=== PATIENT | male | born 1955 | race Caucasian/White ===

== ENCOUNTER 2024-05-14 11:15 | Outpatient (REF) | payer MEDICARE, SELFPAY | END 2024-05-14 11:16 | disposition home or self-care (01) | LOC: HO.LNP 11:15 | PROVIDERS: Visit Provider Psychiatry & Neurology Neurology | DX: Z13.89 Encounter for screening for other disorder (principal) ==

== ENCOUNTER 2024-05-18 11:43 | Outpatient (REF) | payer MEDICARE, SELFPAY ==
[2024-05-22 04:33] LABS: Arsenic, 24H Urine <10 mcg/L (<=80); Cadmium, 24H Urine <0.5 mcg/L (<=5.0); Lead, 24H Urine <10 mcg/L (<80); Mercury, 24H Urine <4 mcg/L (<=20)
== END 2024-05-18 11:44 | disposition home or self-care (01) ==
LOC: HO.LNP 11:43
PROVIDERS: Visit Provider Psychiatry & Neurology Neurology
DX: G20.C Parkinsonism, unspecified (principal)
CPT/HCPCS: 82175; 82300; 83655; 83825

== ENCOUNTER 2025-02-15 14:20 | Outpatient (AMB) | payer MEDICARE, SELFPAY ==
--- OUTSIDE RECORDS SUMMARY | 2025-02-10 08:00 | XMS_ITS | Encounter Summary ---
Author Organization [facility] Address [address] [place] [address] Care Team Providers Care Counter Molder Name Role Phone Eris Magdaleno MD Primary Care Provider [phone] Reason for Visit * Reason Comments Follow-up Right knee pain Encounter Details Date Type Department Care Team (Late st Contact Info) Description 02/10/2025 8:00 AM EDT Office Visit Orthopedic Surgery - [place] [address] [phone] Calvin Rankin MD [address] [address] Post-traumatic osteoarthritis of right knee (Primary Dx); Parkinson's disease, unspecified whether dyskinesia present, unspecified whether manifestations fluctuate (CMS/HCC V24, CMS/HCC V28); Tremor; Chronic instability of right knee Social History Tobacco Use Types Packs/Day Years Used Date Smoking Tobacco: Never Smokeless Tobacco: Never Alcohol Use Standard Drinks/Week Comments No 0 (1 standard drink = 0.6 oz pur e alcohol) Sex and Gender Information Value Date Recorded Sex Assigned at Not on file Legal Sex Male 11:40 PM EST Gender Identity Not on file Sexual Orientation Not on file documented as of this encounter Last Filed Vital Signs Vital Sign Reading Time Taken Comments Blood Pressure - - Pulse - - Temperature - - Respiratory Rate - - Oxygen Saturation - - Inhaled Oxygen Concentration - - Weight 95.7 kg (211 lb) 02/10/2025 7:46 AM EDT Height - - Body Mass Index 27.84 02/03/2025 1:09 PM EDT documented in this encounter Progress Notes * Calvin Rankin MD - 02/10/2025 8:00 AM EDT Images from the original note were not included. * Calvin Rankin MD - 02/10/2025 8:00 AM EDT [facility] Date: 02/10/2025 Reason for visit: Right knee pain, stiffness, weakness, instability; chronic and postoperative Primary Care Physician: Eris Magdaleno MD Color Room Attendant: None required HPI Lukasz Lyons is a 70 y.o. year old male presents today for evaluation of his right knee. He has previously seen Elsie most recently on 02/03/2025 for follow- up involving right knee pain and instability. He had a history of ACL reconstruction and arthroscopy. He was using an ACL brace during activities noted persistent symptoms in the knee which was creating some increased lower back pain. She discussed considering cortisone injection versus knee replacement surgery. He comes in today saying that he has had persistent symptoms the knee for several years. He underwent right knee ACL reconstruction at [facility] by Dr. Saldaña in 1996 and then subsequent arthroscopy in 2007. He has not been previously evaluated for knee replacement surgery. He has been reluctant to pur linnette knee replacement since pain is not his primary issue this is mainly weakness and instability which have been progressive. However he more recently has started develop pain with weightbearing and doing stairs. Pain does not affect him at rest or sleep. The knee can feel stiff. But primarily the knee feels weak or unstable. He feels like the knee will regulate 1 to give out but he has not had any falls. He feels that the leg is weakening because he has reduced weightbearing activities on the knee. He does not take any regular pain medications. He does regularly wear an ACL brace when out doing more strenuous activities such as walking. He did attend physical therapy earlier this year without benefit. He has been using a cane for the last few years. He owns a walker but does not regularly use this. He was recently diagnosed with Parkinson's. He has been referred to neurology and they are awaitinga nuclear brain imaging test. He has not started any Parkinson's medications. He has read reports that Parkinson's medications can interact with anesthesia. He denies any recent fevers, chills, sweats. He denies any numbness or tingling. He denies any history of DVT or PE. Denies any cancer history. He denies any metal allergy. He lives at home with his and has no steps into the house. Patient Active Problem List Diagnosis Generalized anxiety disorder Hyperlipidemia Sebaceous cyst Parkinson's disease ([facility] V24, [facility] V28) Hammertoe of right foot Past Surgical History: Procedure Laterality Date CARDIOVASCULAR STRESS TEST 11/12 PROCEDURE: IN CV STRS TST XERS&/OR RX CONT ECG W/O I&R; COMMENT: neg KNEE ARTHROSCOPY W/ DEBRIDEMENT 11/02/96 PROCEDURE: IN ARTHRS KNEE DEBRIDEMENT/SHAVING ARTCLR CRTLG; COMMENT: Naveensetsarah; Right ACL repair OTHER SURGICAL HISTORY 10/17 PROCEDURE: CHG ASSAY OF PROSTATE SPECIFIC ANTIGEN FREE; COMMENT: 0.6 Current Outpatient Medications Medication Instructions atorvastatin (LIPITOR) 10 mg, oral, Daily citalopram (CELEXA) 10 mg, oral, Daily folic acid/multivit-min/lutein (CENTRUM SILVER ORAL) Take 1 Tab by mouth daily. No Known Allergies Social History Tobacco Use Smoking status: Never Smokeless tobacco: Never Substance Use Topics Alcohol use: No Drug use: No Physical Exam: Vitals: 02/10/25 0746 Weight: 95.7 kg (211 lb) Well-appearing pleasant male, no apparent distress, alert and oriented. Visible shaking and tremorsprimarily involving the right upper extremity. BMI 28. Pain 5/10. Gait examination he does will require both arms to rise from seated position. He walks with a valgus thrust left lower extremity using a cane. On examination of the right knee he has a well-healed longitudinal incision just medial tibial tubercle. Moderate effusion. Knee range of motion is 0 to 130 degrees. Passively he has 3 degrees hyperextension. Partially correctable valgus. 2+ opening medially and laterally to valgus and varus stressat 30 degrees. Hard endpoint on valgus stress at 30 degrees. 2+ anterior posterior drawer. Mild tenderness about the lateral more than medial joint line, mild tenderness and crepitus on patellar compression and translation. No hip or groin pain on rotation. Nonpulsatile swelling within the popliteal fossa, mildly tender, no overlying skin changes. No calf tenderness. Distally grossly neurovascular intact. Examination of the left knee is benign without any significant tenderness or crepitus. Labs: Lab Results Component Value Date WBC 6.6 12/30/2024 HCT 40.8 (L) 12/30/2024 PLT 195 12/30/2024 Lab Results Component Value Date NA 134 11/04/2024 K 4.5 11/04/2024 EGFR 96 11/04/2024 ALBUMIN 4.2 11/04/2024 BILITOT 0.7 11/04/2024 AST 16 11/04/2024 ALT 26 11/04/2024 ALKPHOS 63 11/04/2024 No results found for: INR , PTT Lab Results Component Value Date LEROY Negative 12/30/2024 Imagin views weightbearing of the right knee obtained 04/21/2024 reviewed including AP, Leos, lateral, sunrise. These show severe degenerative change involving the lateral compartment including complete joint space narrowing, small marginal space, subchondral sclerosis. Mild degenerative change involving medial compartment, and moderate degenerative change involving patellofemoral compartment. 10 degree tibial valgus. Significant anterior translation of the tibia on the femur, along with partiallateral subluxation of the tibia on the femur. Retained proximal medial tibial screw which appearswell-fixed. Loose body within the popliteal fossa. 10 degree tibial valgus. Assessment: 70-year-old male with right knee severe valgus posttraumatic arthritis with instabilitystatus post distant ACL reconstruction. Parkinson's disease currently untreated. Anxiety. BMI 28. Plan: Discussed my findings, and I reviewed imaging studies with the patient. He has severe dagc-gl-udfz arthritis involving the right knee along with both subjective and objective instability. Left knee and lower back symptoms are likely due to him compensating from the right knee. I have recommended that he continue low impact activities as tolerated, but continue to use ACL brace for more strenuous activities, along with assist device to prevent any falls. Due to the severe dbxa-wr-esna nature of his arthritis along with progressive instability, I do not believe that ongoing nonoperative treatments will provide lasting relief. Therefore we discussed definitive treatment including right total knee replacement surgery. I used a model to review technical details, inherent benefits and risks, and anticipated recovery. I printed out information for them to review on total knee replacement surgery. I was quite blunt with the patient explaining that he is a high risk surgical candidate considering retained hardware, ligament instability, and untreated Parkinson's. I have strongly recommended that he contact his neurologist to determine if it would be better for him to start Parkinson's treatment/medicine before surgery, which may improve his Parkinson symptoms and coordination allowing him to better rehab after surgery. We have specifically discussed that surgery will improve pain and function of the knee, but that strength is mainly through rehabilitation which may be limited due to his Parkinson's. Other additional increased risks include fall with injury, instability, and implantloosening. Finally we discussed increased risk of peroneal nerve palsy due to valgus alignment which could result in foot drop and need for ankle brace. I estimate his risk of complication at about 15% which could leave him in a worse condition than he is now, 10% risk of dissatisfaction, but 75% chance of successful surgery. He is going to consider this and will contact us if he wishes to proceed with surgical scheduling. He will require preoperative labs, and clearance through PCP and dentist. Plan on overnight stay, CPS versus hinge, extend antibiotics, low-dose for no gabapentin. I will see him back at the preop appointment where mag marker x-rays of the right knee should be obtained. Thank you for your referral. Calvin Rankin MD [address] [place] [address], [address] [address] W: [phone] F: [phone] Portions of this note were dictated utilizing the speech recognition software. Electronically Signed By: Calvin Rankin MD 02/10/2025 8:28 AM EDT documented in this encounter Plan of Treatment Upcoming Encounters Date Type Department Care Team ([facility] Contact Info) Description 05/10/2025 9:15 AM EDT Office Visit Internal Medicine - [address] [phone] Eris Magdaleno MD [address] [place] [phone] documented as of this encounter Visit Diagnoses Diagnosis Post-traumatic osteoarthritis of right knee- Primary Parkinson's disease, unspecified whether dyskinesia present, unspecified whether manifestations fluctuate ([facility] V24, [facility] V28) Tremor Abnormal involuntary movements Chronic instability of right knee documented in this encounter Discontinued Medications Medication Sig Discontinue Reason Start Date End Da te atorvastatin (LIPITOR) 10 mg tablet TAKE 1 TABLET BY MOUTH EVERY DAY 11/16/2024 02/10/2025 documented as of this encounter Care Teams Counter Molder Relationship Specialty Start Date End Date Eris Magdaleno MD [address] [place] [phone] PCP - General Internal Medicine 01/28/18 documented as of this encounter
--- NOTE | 2025-02-15 14:22 | A.OFFVIS_ITS ---
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 Because of atypical nature of tremor, DaTSCAN was recommended. Apparently it has not been done yet something to do with his insurance or logistics. He continues to have the tremor. [facility] Medical History (Updated 02/15/25 @ 14:31 by Bell Wood MD) Anxiety HLD (hyperlipidemia) Review of Systems Const Details: Constitutional:?No fever, chills, fatigue, weight loss, or night sweats. HEENT:?No headache, vision changes, hearing loss, nasal congestion, sore throat. Neurological:?No dizziness, syncope, seizures, numbness, tingling, weakness, tremors, memory loss. Psychiatric:?No anxiety, depression, mood swings, sleep disturbance, or hallucinations. Endocrine:?No heat/cold intolerance, polydipsia, polyuria, or hair/skin changes. Hematologic/Lymphatic:?No easy bruising, bleeding, or lymphadenopathy. Integumentary (Skin):?No rash, lesions, itching, or color changes. ? Physical Exam Neuro Other: Mental Status: Alert and oriented to person, place, and time. Normal attention. Normal spontaneous speech, fluency, and comprehension. No obvious issues with mood and memory. Affect is appropriate. Cranial Nerves: CN II: Visual martinez full to confrontation, visual acuity intact. CN III, IV, : Pupils equal, round, reactive to light and accommodation. Extraocular movements are normal. CN V: Facial sensation is normal. CN VII: Facial movements symmetrical. CN VIII: Hearing intact to bedside conversation is normal. CN IX, X: Palate elevates symmetrically. CN XI: Shoulder shrug and head turn symmetrical. CN XII: Tongue midline without atrophy or fasciculations. Motor: Bulk and tone normal in all extremities. No significant muscle weakness in arms and legs. No drift. Reflexes: Deep tendon reflexes 2+ and symmetric. Plantar response down-going bilaterally. Coordination: Qyxjfx-vx-oqke and mgfg-jw-jrpw testing normal. No dysmetria. Gait and Station: No obvious gait abnormality. No ataxia or instability. Sensory: Intact to light touch, pinprick, and vibration. Romberg is negative. Extrapyramidal: Full facial expressions and blinking. No rigidity. Movements are appropriate with no tremor or abnormality. Speech: Normal; no dysarthria or tremor. Assessment & Plan Assessment & Plan (1) Parkinsonian tremor: Code(s): G20.C - Parkinsonism, unspecified Category: Medical Plan Because of atypical nature of tremor, I would try to obtain a DaTSCAN. In the meantime he was advised to try carbidopa/levodopa 25/100 1 at 07:00 and 11:00 to see if that would help him with tremor. Orders: Orders DaTscan Today G20.C - Parkinsonism, unspecified Medications: New carbidopa-levodopa 25-100 mg (Sinemet) 1 tab PO BID 60 tabs 0RF 30 days Coding Level of Care Code Est Pt Level 4 (36118) Diagnoses Parkinsonian tremor G20.C
== END 2025-02-15 14:43 | disposition home or self-care (01) ==
LOC: HO.HSM 14:21
PROVIDERS: Visit Provider Psychiatry & Neurology Neurology
DX: G20.C Parkinsonism, unspecified (principal)
CPT/HCPCS: 99214

== ENCOUNTER → 2025-02-15 14:20 | Outpatient (BNVA) | payer MEDICARE, SELFPAY | PROVIDERS: Visit Provider Psychiatry & Neurology Neurology | DX: G20.C Parkinsonism, unspecified (principal) | CPT/HCPCS: 99212 ==

== ENCOUNTER 2025-03-18 11:53 | Outpatient (AMB) | payer MEDICARE, SELFPAY ==
--- OUTSIDE RECORDS SUMMARY | 2025-02-10 08:00 | XMS_ITS | Encounter Summary ---
Author Organization [facility] Address [address] [place] [address] Care Team Providers Care Terminal Block Assembler Name Role Phone Galina Cabrera MD Primary Care Provider [phone] Reason for Visit * Reason Comments Follow-up Right knee pain Encounter Details Date Type Department Care Team (Late st Contact Info) Description 02/10/2025 8:00 AM EDT Office Visit Orthopedic Surgery - [place] [address] [phone] Calvin Mora MD [address] [address] Post-traumatic osteoarthritis of right knee (Primary Dx); [...] in this encounter Progress Notes * Calvin Mora MD - 02/10/2025 8:00 AM EDT Images from the original note were not included. * Calvin Mora MD - 02/10/2025 8:00 AM EDTAddended by: CALVIN MORA on: 03/10/2025 04:42 PM Modules accepted: Orders * Calvin Mora MD - 02/10/2025 8:00 AM EDT [facility] Date: 02/10/2025 Reason for visit: Right knee pain, stiffness, weakness, instability; chronic and postoperative Primary Care Physician: Eris Magdaleno MD Manager Of Housekeeping: None required HPI Lukasz Lyons is a [...] He underwent right knee ACL reconstruction at [facility] by Dr. Saldaña in 1996 and then [...] disorder Hyperlipidemia Sebaceous cyst Parkinson's disease ([facility] V24, [facility] V28) Hammertoe of right foot Past Surgical History: Procedure Laterality Date CARDIOVASCULAR STRESS TEST 11/12 PROCEDURE: AL CV STRS TST XERS&/OR RX CONT ECG W/O I&R; COMMENT: neg KNEE ARTHROSCOPY W/ DEBRIDEMENT 11/02/96 PROCEDURE: AL ARTHRS KNEE DEBRIDEMENT/SHAVING ARTCLR CRTLG; COMMENT: Naveensetsarah; [...] femur. Retained proximal medial tibial screw which appears well-fixed. Loose body within the popliteal fossa. 10 degree tibial valgus. Assessment: 70-year-old male with right knee severe valgus posttraumatic arthritis with instabilitystatus post distant ACL reconstruction. Parkinson's disease currently untreated. Anxiety. BMI 28. Plan: Discussed my findings, and I reviewed imaging studies with the patient. He has severe xozj-cc-pqew arthritis involving the right knee along with both subjective and objective instability. Left knee and lower back symptoms are likely due to him compensating from the right knee. I have recommended that he continue low impact activities as tolerated, but continue to use ACL brace for more strenuous activities, along with assist device to prevent any falls. Due to the severe ugko-yq-ioou nature of his arthritis along with progressive [...] obtained. Thank you for your referral. Calvin Mora MD [address] [place] [address], [address] [place] [address] W: [phone] F: [phone] Portions of this note were dictated utilizing the speech recognition software. Electronically Signed By: Calvin Mora MD 02/10/2025 8:28 AM EDT documented in this encounter Plan of Treatment Upcoming Encounters Date Type Department Care Team ([facility] st Contact Info) Description 04/15/2025 9:30 AM EDT Consult Internal Medicine - [address] [phone] Galina Cabrera MD [address] [place] [address] 04/21/2025 1:00 PM EDT Consult Orthopedic Surgery - [place] [address] [address] [phone] Jenny Bird NP [address] [address] 05/10/2025 4:30 PM EDT Office Visit Internal Medicine - [address] [phone] Galina Cabrera MD [address] [place] [address] 05/11/2025 7:30 AM EDT Hospital Encounter [facility] [place] [address] [place] [phone] Calvin Mora MD [address] [address] 05/11/2025 7:30 AM EDT - 05/11/2025 11:00 AM EDT Surgery [facility] Main OR [address] [place] [phone] Calvin Mora MD [address] [address] RIGHT TOTAL KNEE ARTHROPLASTY [35470 (CPT )] 05/26/2025 9:30 AM EDT Office Visit Orthopedic Surgery [place] [address] [phone] Calvin Mora MD [address] [place] [address] Scheduled Procedures Name Priority Associated Diagnoses Date/Ti me ARTHROPLASTY KNEE TOTAL Post-traumatic osteoarthritis of right knee 05/11/2025 7:30 AM EDT documented as of this encounter Visit Diagnoses Diagnosis Post-traumatic osteoarthritis of right knee- Primary Parkinson's disease, unspecified whether dyskinesia present, unspecified whether manifestations fluctuate (CMS/HCC V24, CMS/HCC V28) Tremor Abnormal involuntary movements Chronic instability of right knee Post-traumatic osteoarthritis of right knee documented in this encounter Discontinued Medications Medication Sig Discontinue Reason Start Date End Da te atorvastatin (LIPITOR) 10 mg tablet TAKE 1 TABLET BY MOUTH EVERY DAY 11/16/2024 02/10/2025 documented as of this encounter Orders Nursing Count Last Ordered Date First Orde red Date [id number] 2 03/10/2025 Case Request Count Last Ordered Date First Orde red Date CASE REQUEST OPERATING ROOM 1 03/10/2025 documented in this encounter Care Teams Terminal Block Assembler Relationship Specialty Start Date End Date Galina Cabrera MD [address] [place] [address] PCP - General Internal Medicine 03/05/25 documented as of this encounter
--- NOTE | 2025-03-18 12:11 | A.OFFVIS_ITS ---
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 Urine heavy metal screen was normal. Because of somewhat atypical nature of tremor, MANOJ scan was done, which revealed bilateral basal ganglia hyperactivity. [facility] Medical History (Updated 03/18/25 @ 12:21 by Bell Wood MD) Parkinsonian tremor Anxiety HLD (hyperlipidemia) Review of Systems Const Details: No behavioral symptoms. Physical Exam Neuro Other: Mental Status: Alert and oriented to person, place, and time. Normal attention. Normal spontaneous speech, fluency, and comprehension. No obvious issues with mood and memory. Affect is appropriate. Cranial Nerves: CN II: Visual martinez full to confrontation, visual acuity intact. CN III, IV, : Pupils equal, round, reactive to light and accommodation. Extraocular movements are normal. CN V: Facial sensation is normal. CN VII: Facial movements symmetrical. CN VIII: Hearing intact to bedside conversation is normal. CN IX, X: Palate elevates symmetrically. CN XI: Shoulder shrug and head turn symmetrical. CN XII: Tongue midline without atrophy or fasciculations. Extrapyramidal: Moderate right hand resting tremor Speech: Normal; no dysarthria or tremor. Assessment & Plan Assessment & Plan (1) Parkinsonism: Comment: MANOJ scan at [facility] in Mar 2025: B/L basal ganglia hypoactivity MRI brain WO at [place] in Apr 2024: Mild diff atrophy, minimal MVD, b/l basal ganglia hypo intensity on gradient echo. Code(s): G20.C - Parkinsonism, unspecified Category: Medical Qualifiers: Parkinsonism type: unspecified Qualified Code(s): G20.C - Parkinsonism, unspecified (2) Parkinsonian tremor: Code(s): G20.C - Parkinsonism, unspecified Category: Medical (3) Parkinson disease: Comment: MRI brain WO at [place] in Apr 2024: Mild diff atrophy, minimal MVD, b/l basal ganglia hypointensity on gradiant echo Code(s): G20.A1 - Parkinson's disease without dyskinesia, without mention of fluctuations Category: Medical Qualifiers: Dyskinesia presence: without dyskinesia Fluctuating manifestations: without fluctuating manifestations Qualified Code(s): G20.A1 - Parkinson's disease without dyskinesia, without mention of fluctuations Plan Impression: a: Mild to moderate Parkinsonian tremor mostly affecitng the right hand b: B/L basal ganglia hypoattenuation on MANOJ scan suggestive of an underlying Parkinsonian syndrome Rec: a: Carbidopa/levodopa 25/100 at 7am, 11am, and 3pm. b: Amantadine 100mg at 7am and 11am Medications: New amantadine HCl 100 mg PO BID 180 tabs 1RF Changed From carbidopa-levodopa 25-100 mg (Sinemet) 1 tab PO BID 30 days 180 tabs 0RF To carbidopa-levodopa 25-100 mg (Sinemet) 1 tab PO TID 270 tabs 1RF 90 days Coding Level of Care Code Est Pt Level 4 (19848) Diagnoses Parkinsonism, unspecified Parkinsonism type G20.C Parkinsonism type: unspecified Parkinsonian tremor G20.C Parkinson's disease without dyskinesia or fluctuating manifestations G20.A1 Dyskinesia presence: without dyskinesia Fluctuating manifestations: without fluctuating manifestations
== END 2025-03-18 12:26 | disposition home or self-care (01) ==
LOC: HO.HSM 11:54
PROVIDERS: PCP Internal Medicine; Visit Provider Psychiatry & Neurology Neurology
DX: G20.A1 Parkinson's disease without dyskinesia, without mention of fluctuations (principal); G20.C Parkinsonism, unspecified
CPT/HCPCS: 99214

== ENCOUNTER → 2025-03-18 11:53 | Outpatient (BNVA) | payer MEDICARE, SELFPAY | PROVIDERS: PCP Internal Medicine; Visit Provider Psychiatry & Neurology Neurology | DX: G20.A1 Parkinson's disease without dyskinesia, without mention of fluctuations (principal) | CPT/HCPCS: 99212 ==